=== PATIENT | female | born 1975 | race African-American/Black ===

== ENCOUNTER 2021-04-07 02:32 | Emergency (ER) | payer BC ==
[2021-04-07 18:26] LABS: SARS-CoV-2 PCR by NAA Not Detected (NotDetected)
== END 2021-04-07 04:05 | disposition home or self-care (01) ==
LOC: ERS 02:32
DX: J30.9 Allergic rhinitis, unspecified (principal); B34.9 Viral infection, unspecified; Z20.822 Contact with and (suspected) exposure to COVID-19; F17.210 Nicotine dependence, cigarettes, uncomplicated
CPT/HCPCS: 99283; U0003; U0005

== ENCOUNTER 2021-09-19 07:57 | Outpatient (CLI) | payer BC | END 2021-09-19 07:58 | disposition home or self-care (01) | LOC: BICMAMMO 07:57 | PROVIDERS: ATTEND Physician Assistant | DX: Z12.31 Encounter for screening mammogram for malignant neoplasm of breast (principal) | CPT/HCPCS: 77063; 77067 ==